=== PATIENT | female | born 1980 | race African-American/Black ===

== ENCOUNTER 2023-11-15 08:14 | Emergency (ER) | payer MEDICAID, OTHER ==
[~2023-11-15] VITALS: Ht 172.7 cm; Wt 72.6 kg
[2023-11-15 08:24] VITALS: BP 138/67; TEMP 98.4; O2SAT 98
== END 2023-11-15 08:47 | disposition home or self-care (01) ==
LOC: ER 08:26
DX: Z00.00 Encounter for general adult medical examination without abnormal findings (principal); Z76.0 Encounter for issue of repeat prescription; Z60.2 Problems related to living alone

== ENCOUNTER 2024-04-12 11:44 | Emergency (ER) | payer MEDICAID, OTHER ==
[~2024-04-12] VITALS: Ht 172.7 cm; Wt 81.6 kg
[2024-04-12] MEDS ORDERED: NITROFURANTOIN/MONOHYDRATE MACROCRYSTALS 100 MG CAPSULE ONE (12:27)
[2024-04-12] MEDS: NITROFURANTOIN/MONOHYDRATE MACROCRYSTALS 100 MG CAPSULE PO ONE (12:32)
[2024-04-12 12:34] LABS: APPEARANCE,URINE CLEAR (CLEAR); BILIRUBIN,URINE NEGATIVE (NEGATIVE); BLOOD, URINE NEGATIVE Ery/uL (NEGATIVE); COLOR,URINE YELLOW (YELLOW); KETONES,URINE NEGATIVE (NEGATIVE); LEUKOCYTE ESTERASE ,URINE NEGATIVE (NEGATIVE); NITRITE, URINE NEGATIVE (NEGATIVE); PH,URINE 8.5 (5.0-8.0); PROTEIN,URINE 2+ mg/dl (NEGATIVE); UGLUCOSE NEGATIVE (NEGATIVE); UROBILINOGEN,URINE 0.2 EU/dL (0.2)
[2024-04-12 12:46] LABS: ADD URINE CULTURE NO; BACTERIA,URINE Few /HPF (None Seen); RBC,URINE 0-2 /HPF (0-2); SQUAMOUS EPITHELIAL CELL,UR 0-2 /HPF (None Seen); WBC,URINE 0-2 /HPF (0-3)
[2024-04-12 12:47] LABS: CALCIUM PHOSPHATE CRYSTALS,UR Many /HPF (None Seen)
[2024-04-12] MEDS ORDERED: NITR100C6 PO (13:20)
[2024-04-12 14:18] VITALS: BP 118/76; TEMP 97.8; O2SAT 98
== END 2024-04-12 14:19 | disposition home or self-care (01) ==
LOC: ER 11:44
DX: N39.0 Urinary tract infection, site not specified (principal); R10.2 Pelvic and perineal pain; R30.0 Dysuria; R35.0 Frequency of micturition; Z60.2 Problems related to living alone
CPT/HCPCS: 81001

== ENCOUNTER 2024-08-27 19:26 | Emergency (ER) | payer OTHER ==
[~2024-08-27] VITALS: Ht 170.2 cm; Wt 81.6 kg
[~2024-08-27 19:26] MED LIST: NITR100C6 PO
[2024-08-27 20:39] LABS: APPEARANCE,URINE SLIGHTLY CLOUDY (CLEAR); BILIRUBIN,URINE NEGATIVE (NEGATIVE); BLOOD, URINE NEGATIVE Ery/uL (NEGATIVE); COLOR,URINE YELLOW (YELLOW); KETONES,URINE NEGATIVE (NEGATIVE); LEUKOCYTE ESTERASE ,URINE NEGATIVE (NEGATIVE); NITRITE, URINE NEGATIVE (NEGATIVE); PROTEIN,URINE NEGATIVE (NEGATIVE); UGLUCOSE NEGATIVE (NEGATIVE); UROBILINOGEN,URINE 0.2 EU/dL (0.2)
[2024-08-27 20:43] LABS: PREGNANCY TEST URINE QUAL NEGATIVE (NEGATIVE)
[2024-08-27 20:55] LABS: CALCIUM OXALATE CRYSTALS,UR Many /HPF (None Seen)
[2024-08-27 20:56] LABS: RBC,URINE 0-2 /HPF (0-2)
[2024-08-27 20:57] LABS: ADD URINE CULTURE YES; BACTERIA,URINE Moderate /HPF (None Seen); SQUAMOUS EPITHELIAL CELL,UR Many /HPF (None Seen)
[2024-08-27] MEDS ORDERED: SULF1TAB48 PO (21:06)
[2024-08-27 21:18] VITALS: BP 125/78; TEMP 98.2; O2SAT 100
== END 2024-08-27 21:18 | disposition home or self-care (01) ==
LOC: ER 19:30
DX: N39.0 Urinary tract infection, site not specified (principal); F17.200 Nicotine dependence, unspecified, uncomplicated; Z60.2 Problems related to living alone; Z79.899 Other long term (current) drug therapy; Z59.00 Homelessness unspecified
CPT/HCPCS: 81001; 84703-TC; 87086-TC

== ENCOUNTER 2025-02-15 22:03 | Emergency (ER) | payer OTHER ==
[~2025-02-15 22:03] MED LIST changes: -NITR100C6 PO; +SULF1TAB48 PO
== END 2025-02-15 22:32 | disposition left against medical advice (07) ==
LOC: ER 22:08
DX: Z53.21 Procedure and treatment not carried out due to patient leaving prior to being seen by health care provider (principal)